=== PATIENT | female | born 1940 | race Caucasian/White ===

== ENCOUNTER 2016-12-20 05:38 | Emergency (ER) | payer OTHER ==
[~2016-12-20] VITALS: Ht 160 cm; Wt 74.0 kg
[~2016-12-20 05:38] MED LIST: Ascorbic Acid PO; BABY ASPIRIN81 M1 PO; CIPRO500 MG PO; FLONASE16 G1 BOTH NARES; MULTI VITAMIN1 EACH PO; NOHOMEMEDS; PRIMIDONE250 MG PO; PRIMIDONE50 MG PO; PROPRANOLOL HCL80 MG PO; TYLENOL REGULA325 MG PO
[2016-12-20 06:08] LABS: HEMATOCRIT 37.7 % (36.0-46.0); MCH 28.6 PG (29.0-34.0); MCHC 32.6 G/DL (30.0-36.0); MCV 87.7 FL (83-99); MEAN PLAT.VOLUME 10.8 uM^3 (9.5-12.4); PLATELET COUNT 200 K/uL (156-360); RBC DIS.WIDTH-CV 13.5 % (11.8-14.6); RBC DIS.WIDTH-SD 42.6 % (39-53); WHITE BLOOD COUNT 6.3 K/uL (4.1-10.2)
[2016-12-20 06:20] LABS: CHLORIDE 106 mEq/L (99-109); SODIUM 140 mEq/L (136-147)
[2016-12-20 06:22] LABS: GLUCOSE 105 mg/dL (70-99)
[2016-12-20 06:23] LABS: ANION GAP 9 MEQ/L (2-14)
[2016-12-20] MEDS ORDERED: HYDROCHLOROTH12.5 M3 PO (06:23)
[2016-12-20] MEDS ORDERED: PRIMIDONE50 MG PO ×2 (06:24→06:25)
[2016-12-20 06:26] LABS: GFR ESTIMATE (CALCULATED) 51 mL/min/; UREA NITROGEN (BUN) 16 mg/dL (9-23)
[2016-12-20 07:22] LABS: ADD MIUA? YES; BILIRUBIN NEGATIVE; BLOOD SMALL; COLOR STRAW ((YELLOW)); GLUCOSE (STRIP) NEGATIVE; KETONES NEGATIVE; LEUKOCYTES NEGATIVE; NITRITE NEGATIVE; PROTEIN (STRIP) NEGATIVE; SPECIFIC GRAVITY 1.008 (1.000-1.030); UROBILINOGEN 0.2 MG/DL (0.2-1.0)
[2016-12-20 07:25] LABS: BACTERIA RARE /HPF; EPITHELIAL CELLS NONE SEEN /HPF; MUCUS TRACE /LPF; RED BLOOD CELLS 0-5 /HPF (0-5); WHITE BLOOD CELLS 0-5 /HPF (0-5)
[2016-12-20] MEDS ORDERED: MECLIZINE HCL25 MG PO (08:01)
[2016-12-20 08:13] VITALS: BP 157/93
== END 2016-12-20 08:21 | disposition home or self-care (01) ==
LOC: EME 05:38
PROVIDERS: Physician Assistant
DX: R42 Dizziness and giddiness (principal); I10 Essential (primary) hypertension; R53.81 Other malaise; R07.9 Chest pain, unspecified; Z79.82 Long term (current) use of aspirin; Z87.891 Personal history of nicotine dependence
CPT/HCPCS: 70450; 71020; 80048; 81003; 85027; 93005; 99281; 99284

== ENCOUNTER 2017-07-07 11:34 | Observation (INO) | payer OTHER ==
[~2017-07-07] VITALS: Ht 158.8 cm; Wt 78.7 kg
[~2017-07-07 11:34] MED LIST changes: +HYDROCHLOROTH12.5 M3 PO; +MECLIZINE HCL25 MG PO
[2017-07-07 12:04] LABS: HEMATOCRIT 40.9 % (36.0-46.0); HEMOGLOBIN 13.5 G/DL (11.9-15.5); MCH 29.9 PG (29.0-34.0); MCV 90.7 FL (83-99); RBC DIS.WIDTH-SD 42.9 % (39-53); RED BLOOD COUNT 4.51 M/uL (3.80-5.20); WHITE BLOOD COUNT 9.7 K/uL (4.1-10.2)
[2017-07-07 12:14] LABS: CHLORIDE 101 mEq/L (99-109); POTASSIUM 4.1 mEq/L (3.7-5.4); SODIUM 140 mEq/L (136-147)
[2017-07-07 12:15] LABS: GLUCOSE 124 mg/dL (70-99)
[2017-07-07 12:19] LABS: CREATININE 1.2 mg/dL (0.6-1.3); GFR ESTIMATE (CALCULATED) 46 mL/min/
[2017-07-07 12:20] LABS: UREA NITROGEN (BUN) 17 mg/dL (9-23)
[2017-07-07 13:00] LABS: PLAT.SUFFICIENCY ADEQUATE; PLATELET COUNT 262 K/uL (156-360)
[2017-07-07 14:21] LABS: TROP-I INTERPRETATION NEGATIVE; TROPONIN-I < 0.01 ng/mL (0.0-0.30)
[2017-07-07] MEDS ORDERED: PROPRANOLOL HC120 MG PO (15:16)
[2017-07-07 16:38] VITALS: BP 135/60
[2017-07-07 16:58] VITALS: BP 135/75; BP 141/85
[2017-07-07 19:10] VITALS: BP 116/56
[2017-07-07 20:00] VITALS: BP 131/61; BP 131/62; BP 140/73
[2017-07-08 00:12] VITALS: BP 104/58
[2017-07-08 01:01] LABS: TROP-I INTERPRETATION NEGATIVE; TROPONIN-I < 0.01 ng/mL (0.0-0.30)
[2017-07-08 04:16] VITALS: BP 121/66
[2017-07-08 05:16] LABS: BASOPHIL (%) 0.6 % (0-1); EOSINOPHIL (%) 3.3 % (0-5); EOSINOPHIL COUNT 0.2 K/uL (0-0.3); HEMATOCRIT 36.3 % (36.0-46.0); HEMOGLOBIN 11.7 G/DL (11.9-15.5); IMMATURE GRANULOCYTE (%) 0.3 % (0.0-0.7); LYMPHOCYTE (%) 36.7 % (15-42); LYMPHOCYTE COUNT 2.5 K/uL (1.0-2.8); MCH 29.9 PG (29.0-34.0); MCHC 32.2 G/DL (30.0-36.0); MCV 92.8 FL (83-99); MONOCYTE (%) 9.9 % (3-12); MONOCYTE COUNT 0.7 K/uL (0-0.8); NEUTROPHIL (%) 49.2 % (45-76); NEUTROPHIL COUNT 3.3 K/uL (1.8-6.4); PLATELET COUNT 194 K/uL (156-360); RBC DIS.WIDTH-CV 13.1 % (11.8-14.6); RBC DIS.WIDTH-SD 44.4 % (39-53); RED BLOOD COUNT 3.91 M/uL (3.80-5.20); WHITE BLOOD COUNT 6.7 K/uL (4.1-10.2)
[2017-07-08 05:35] LABS: TROP-I INTERPRETATION NEGATIVE; TROPONIN-I < 0.01 ng/mL (0.0-0.30)
[2017-07-08 05:41] LABS: CHLORIDE 103 MEQ/L (99-109); CREATININE 1.1 MG/DL (0.6-1.3); GFR ESTIMATE (CALCULATED) 51 mL/min/; GLUCOSE 100 mg/dL (70-99); POTASSIUM 4.1 MEQ/L (3.7-5.4); SODIUM 141 MEQ/L (136-147); UREA NITROGEN (BUN) 15 mg/dL (9-23)
[2017-07-08 07:58] VITALS: BP 136/64
[2017-07-08 11:27] VITALS: BP 97/73
[2017-07-08 14:53] LABS: APPEARANCE CLOUDY ((CLEAR)); BILIRUBIN NEGATIVE; BLOOD SMALL; COLOR YELLOW ((YELLOW)); GLUCOSE (STRIP) NEGATIVE; KETONES NEGATIVE; LEUKOCYTES LARGE; NITRITE NEGATIVE; PROTEIN (STRIP) NEGATIVE; SPECIFIC GRAVITY 1.005 (1.000-1.030); UROBILINOGEN 0.2 MG/DL (0.2-1.0)
[2017-07-08 15:33] VITALS: BP 118/57
[2017-07-08 16:39] LABS: BACTERIA 3+ /HPF; EPITHELIAL CELLS 1+ /HPF; MUCUS 1+ /LPF; RED BLOOD CELLS 0-5 /HPF (0-5); WHITE BLOOD CELLS TNTC /HPF (0-5)
[2017-07-08] MEDS ORDERED: CEFTIN500 MG PO (16:53)
== END 2017-07-08 17:43 | disposition home or self-care (01) ==
LOC: EME 11:34 → EDOF 15:23 → ENRESERV 15:29 → 5WEST 16:24
PROVIDERS: Family Medicine; Internal Medicine
DX: R55 Syncope and collapse (principal); R42 Dizziness and giddiness; R07.9 Chest pain, unspecified; R00.2 Palpitations; R68.84 Jaw pain; G25.0 Essential tremor; I10 Essential (primary) hypertension; N39.0 Urinary tract infection, site not specified; G89.29 Other chronic pain; M54.9 Dorsalgia, unspecified; Z79.82 Long term (current) use of aspirin; Z82.49 Family history of ischemic heart disease and other diseases of the circulatory system; Z87.891 Personal history of nicotine dependence; Z88.1 Allergy status to other antibiotic agents; Z88.8 Allergy status to other drugs, medicaments and biological substances
CPT/HCPCS: 71046; 80048; 81003; 84443; 84484; 85025; 85027; 93005; 97530 GO; 99281; 99285; G0378; G8978 GP CJ; G8979 GP CH; G8980 CJ; G8987 GO CI; G8988 GO CH; G8989 GO CI; J1650; J7040